=== PATIENT | female | born 1950 | race Caucasian/White ===

== ENCOUNTER → 2019-05-09 13:48 | Outpatient (BNVA) | payer MEDICARE, SELFPAY | PROVIDERS: Family Provider Nurse Practitioner Family; Referring Provider Nurse Practitioner; Visit Provider Nurse Practitioner | DX: N39.0 Urinary tract infection, site not specified (principal) | CPT/HCPCS: 81003 ==

== ENCOUNTER 2022-04-20 08:47 | Outpatient (CLI) | payer MEDICARE, SELFPAY ==
--- NOTE | 2022-04-20 09:05 | XRR_ITS ---
PROCEDURE INFORMATION: Exam: XR Left Elbow Exam date and time: 04/20/2022 9:19 AM Age: 71 years old Clinical indication: Pain and injury or trauma; Fall; Blunt trauma (contusions or hematomas); Injury date: 2 momths ago; Patient HX: Fell on stairs 2 months ago, pain in left hand and left elbow; Additional info: M25.522 - pain in left elbow TECHNIQUE: Imaging protocol: Radiologic exam of the Left elbow. Views: 3 or more views. Total images: 3 COMPARISON: No relevant prior studies available. FINDINGS: Bones/joints: Normal. Soft tissues: Normal. XR/XR elbow LT min 3V* [id number] IMPRESSION: No acute findings.
--- NOTE | 2022-04-20 09:05 | XRR_ITS ---
PROCEDURE INFORMATION: Exam: XR Left Hand Exam date and time: 04/20/2022 9:19 AM Age: 71 years old Clinical indication: Pain and injury or trauma; Fall; Blunt trauma (contusions or hematomas); Patient HX: Fell on stairs 2 months ago, pain in left hand and left elbow (ring will not come off of 4th digit); Additional info: M79.645 - pain in left finger(s) TECHNIQUE: Imaging protocol: Radiologic exam of the Left hand. Views: 3 or more views. Total images: 4 COMPARISON: No relevant prior studies available. FINDINGS: Bones/joints: Degenerative changes are seen in the 1st carpal metacarpal joint with joint space narrowing, mild sclerosis, and osteophyte formation. No acute fracture nor subluxation. No osseous erosion nor periosteal reaction. Soft tissues: Normal. XR/XR hand LT min 3V* [id number] IMPRESSION: No acute osseous pathology.
== END 2022-04-20 08:48 | disposition home or self-care (01) ==
LOC: RAD 08:51
PROVIDERS: Visit Provider Nurse Practitioner Family
DX: M79.645 Pain in left finger(s) (principal); W19.XXXA Unspecified fall, initial encounter; Y92.009 Unspecified place in unspecified non-institutional (private) residence as the place of occurrence of the external cause; M25.522 Pain in left elbow
CPT/HCPCS: 73080; 73130

== ENCOUNTER 2022-05-10 09:54 | Outpatient (CLI) | payer MEDICARE, SELFPAY ==
--- NOTE | 2022-05-10 10:01 | MM_ITS ---
WS: [id number] Bilateral screening 3D tomosynthesis digital mammogram, 05/10/2022 Clinical Data: SCREENING Comparison: 08/09/2018, 07/15/2018, 10/09/2013, 07/26/2007. Findings: The breast parenchymal pattern shows heterogeneous density. No spiculated masses or clustered calcifi cations are seen. There are no secondary signs of carcinoma. MM/[place] [id number] Impression: 1. Negative bilateral mammogram unchanged. 2. Recommend annual screening mammograms. BIRADS: 1-Negative FOLLOW UP: 1 Year Follow-up The CAD photo checker was used.
== END 2022-05-10 09:55 | disposition home or self-care (01) ==
LOC: RAD 09:55
PROVIDERS: Visit Provider Nurse Practitioner Family
DX: Z12.31 Encounter for screening mammogram for malignant neoplasm of breast (principal)
CPT/HCPCS: 77063; 77067

== ENCOUNTER → 2024-12-07 14:01 | Outpatient (BNVA) | payer MEDICARE, SELFPAY | PROVIDERS: Visit Provider Registered Nurse Neonatal Intensive Care | DX: R35.0 Frequency of micturition (principal) | CPT/HCPCS: 81000; 87086 ==

== ENCOUNTER → 2025-03-11 13:21 | Outpatient (BNVA) | payer MEDICARE, SELFPAY | PROVIDERS: Visit Provider Emergency Medicine | DX: R39.9 Unspecified symptoms and signs involving the genitourinary system (principal) | CPT/HCPCS: 81000; 87086 ==